=== PATIENT | female | born 1985 | race Hispanic/Latino ===

== ENCOUNTER 2019-10-21 21:23 | Inpatient (IN) ==
[2019-10-21] MEDS ORDERED: NS 1,000 ML IV ONE (21:48)
[2019-10-21 22:07] LABS: ALLEN TEST YES; BE -21.4 mmoll (-3.0-3.0); BLOOD TYPE ARTERIAL; HCO3-(ACT) 8.2 mmoll (20.0-26.0); METHB 1.2 % (0.0-1.5); O2(CT) 18.2 mL/dL (15.0-23.0); O2HB 96.2 % (95.0-99.0); PO2(98.6) 121 mmHg (60-100); SAMPLE BLOOD; SAO2 98.2 % (95.0-100.0); THB 13.3 g/dL (11.5-17.4)
[2019-10-21 22:09] LABS: MODALITY ROOM AIR; PCO2(98.6) 13 mmHg (35-45); pH(98.6) 7.17 (7.35-7.45)
[2019-10-21] MEDS ORDERED: HUMULIN R IV ONE (22:15)
[2019-10-21 22:17] LABS: BASO# 0.01 X1000 (0.0-0.2); BASO% 0.1 % (0.0-0.8); HEMATOCRIT 40.9 % (37.0-47.0); HEMOGLOBIN 12.7 g/dL (12.0-16.0); IMM GRAN# 0.02 X1000 (0.0-0.04); IMM GRAN% 0.2 % (0.0-0.5); LYMPH# 0.61 X1000 (1.2-3.4); LYMPH% 6.3 % (20.5-51.1); MCH 25.1 PG (27-31); MCHC 31.1 g/dL (33-37); MCV 80.8 FL (81-99); MONO# 0.18 X1000 (0.11-0.59); MONO% 1.9 % (1.7-9.3); MPV 10.7 FL (7.4-10.4); NEUT# 8.79 X1000 (1.4-6.5); NEUT% 91.5 % (42.2-75.2); PLT 327 X1000 (130-400); RBC 5.06 XMIL (4.2-5.4); WBC 9.61 X1000 (4.8-10.8)
[2019-10-21 22:24] LABS: INR 1.17; PROTIME 15.1 Seconds (11.0-16.0)
[2019-10-21 22:25] LABS: ACETONE SERUM LARGE (NEGATIVE); PTT 24.9 Seconds (22.3-41.8)
[2019-10-21 22:38] LABS: ALB/GLOB RATIO 1.6; CALCIUM 10.2 mg/dL (8.8-10.2); CREATININE 1.1 mg/dL (0.5-0.9); POTASSIUM 4.6 mmol/L (3.5-5.1); TOTAL BILIRUBIN 0.2 mg/dL (0.20-1.00); TOTAL PROTEIN 8.1 g/dL (6.3-8.3)
[2019-10-21 22:40] LABS: MAGNESIUM 2.1 mg/dL (1.5-2.7); PHOSPHORUS 6.5 mg/dL (2.7-4.5)
--- NOTE | 2019-10-21 22:51 | EKG Report ---
Test Performed on : 10/21/2019 9:48:56 PM Test Reason : nausia and vomiting Blood Pressure : / mmHG Vent. Rate : 106 BPM Atrial Rate : 106 BPM P-R Int : 126 ms QRS Dur : 086 ms QT Int : 348 ms P-R-T Axes : 053 -34 023 degrees QTc Int : 462 ms Sinus tachycardia. Possible Left atrial enlargement Left axis deviation Abnormal ECG No previous ECGs available Unconfirmed Result
--- NOTE | 2019-10-21 23:43 | PROVIDER DOCUMENTATION ---
This chart was entered by Kristin Valle Scribe, acting as scribe for Gibran Louis DO. HPI-Abdominal Pain/GI Problem - General Chief Complaint: N/V/D Stated Complaint: VOMITING, CHEST PAIN Time Seen by Provider: 10/21/19 21:26 Source: patient, shot examiner Allergies/Adverse Reactions: Patient Allergies Allergy/AdvReac Type Severity Reaction Status Date / Time No Known Allergies Allergy Verified 10/21/19 21:48 Home Medications: Home Medication List Medication Instructions Recorded Confirmed Last Taken Type Unobtainable [Home Meds 10/21/19 10/21/19 Unknown History Unobtainable] - History of Present Illness-ABD Nature of Presenting Problems: pt is a 34 yr old female presenting with complaint of nausea, vomiting and diarrhea, onset 0. pt also reports chest pain while vomiting. no f ever/chills, no other complaints Abdominal Pain Onset Location: reports: epigastric Pain Radiation: reports: no radiation Quality of Pain: reports: none Severity in ED: reports: moderate Onset/Duration: reports: this morning (299) Timing: reports: still present Activities at Onset: reports: light activity Exposure to sick contacts?: No Modifying Factors: improves with: vomiting (causes chest pain) Associated Symptoms: reports: chest pain, diarrhea, nausea, vomiting. denies: fever/chills Last BM: this evening Rectal Bleeding: reports: none Rectal Pain: reports: none Emesis Description: reports: clear Bruising or Bleeding Gums?: No Similar Symptoms Previously?: No Recently seen or treated by another doctor?: No Review of Systems - Adult - REVIEW OF SYSTEMS - ADULT Constitutional: denies: chills, fever Eyes: reports: no symptoms reported Ears, Nose, Mouth & Throat: denies: ear pain, sinus problem, throat pain Cardiovascular: reports: chest pain. denies: palpitations, syncope Respiratory: denies: cough, dyspnea on exertion, wheezing Gastrointestinal: reports: abdominal pain, diarrhea, nausea, vomiting Genitourinary: reports: no symptoms reported Musculoskeletal: reports: no symptoms reported Integumentary: reports: no symptoms reported Neurological: denies: dizziness/vertigo, headache/migraines Psychiatric: reports: no symptoms reported Endocrine: reports: no symptoms reported Hematologic/Lymphatic: reports: no symptoms reported Allergic/Immunologic: reports: no symptoms reported All Other Systems: Reviewed and Negative Past History - Adult - PAST MEDICAL HISTORY-ADULT Review of Records: reports: Nursing Assessment Review, Medications Reviewed, Social history reviewed & non-contributory. Major Childhood Illnesses: reports: denies history Cardiovascular: reports: denies history Respiratory: reports: denies history Gastrointestinal: reports: denies history Obstetrical/Gynecological: reports: denies history Genitourinary: reports: denies history Musculoskeletal: reports: denies history Neurological: reports: denies history Endocrine/Immune: reports: denies history Other Conditions: reports: denies history - IMMUNIZATION STATUS Childhood Immunizations: See Nurse Assessment Flu Vaccine: See Nurse Assessment - FAMILY HISTORY Family History: reviewed, not pertinent - SOCIAL HISTORY Smoking: denies Substance Use: alcohol Alcohol Use Frequency: occasionally Living Situation: family Physical Exam-General - PHYSICAL EXAM-ADULT Initial Vital Signs Reviewed: Yes - CONSTITUTIONAL General Appearance: appears well, alert, no apparent distress - EYES Eyes: PERRL/EOMI - HEAD, EARS, NOSE, MOUTH & THROAT HENMT: normocephalic/atraumatic, moist mucous membranes, normal ENT inspection - NECK Neck: non-tender, full range of motion, supple, normal inspection - RESPIRATORY Respiratory: chest non-tender, lungs clear, normal breath sounds - CARDIOVASCULAR Cardiovascular: normal peripheral pulses, regular rate, rhythm - GASTROINTESTINAL (ABDOMEN) Abdominal Exam: normal bowel sounds, non tender, soft - LYMPHATIC Lymphatic: no adenopathy - MUSCULOSKELETAL Back Exam: normal inspection, no CVA tenderness, no vertebral tenderness Extremity: normal range of motion, non-tender, normal gait, normal inspection - SKIN Integumentary: normal color, normal turgor, warm/dry - NEUROLOGIC Neurologic: grossly normal, no motor/sensory deficits - PSYCHIATRIC Psych/Mental Status: normal mood/affect Progress - PLAN OF CARE/RESULTS Progress/Plan/Lab Results: Vital Signs - 8 hr 10/21/19 21:30 Temperature 98.7 F Pulse Rate 110 H Respiratory Rate 26 H Blood Pressure 107/75 O2 Sat by Pulse Oximetry 100 Orders Category Date Time Status Cardiac Monitoring DIRECTED Care 10/21/19 21:48 Active ED: Urine Bedside NOW Care 10/21/19 21:48 Active FSBS/Accucheck Result Q1H Care 10/21/19 21:48 Active Finger Stick Blood Sugar (ED) DIRECTED Care 10/21/19 21:45 Active NEWS Score >or=5:Order NEWS Bundle S.O. NOW Care 10/21/19 21:48 Active Saline Loc NOW Care 10/21/19 21:48 Active Vital Signs Order Q1H Care 10/21/19 21:48 Active FLAT/UPRIGHT ABD/1 VIEW CHEST [RAD] Stat Exams 10/21/19 21:45 Ordered ABG [RESP] Routine Lab 10/21/19 21:46 Ordered ACETONE SERUM [CHEM] Stat Lab 10/21/19 21:48 Uncollected CBC WITH ELECTRONIC DIFF [HEME] Stat Lab 10/21/19 21:45 Uncollected CK PROFILE [SP CHEM] Stat Lab 10/21/19 21:45 Ordered COMPREHENSIVE METABOLIC PANEL [CHEM] Stat Lab 10/21/19 21:45 Ordered LACTATE, PLASMA [CHEM] Stat Lab 10/21/19 21:48 Uncollected MAGNESIUM [CHEM] Stat Lab 10/21/19 21:48 Uncollected PHOSPHORUS [CHEM] Stat Lab 10/21/19 21:48 Uncollected TEST-URINE [PREG] Stat Lab 10/21/19 21:45 Uncollected TROPONIN T HIGH SENSITIVITY Stat Lab 10/21/19 21:48 Uncollected UA NIMS W/REFLEX CULT [URINALYSIS] Stat Lab 10/21/19 21:47 Uncollected URINE DRUG SCREEN Stat Lab 10/21/19 21:48 Uncollected 0.9% Sodium Chloride Inj [Ns] 1,000 ml Med 10/21/19 21:48 Active IV 999 mls/hr EKG [EKG] Routine Ther 10/21/19 21:48 Ordered Result Diagrams: 10/21/19 21:55 10/21/19 21:55 - EKG 1 Time of EKG reading by physician:: 21:48 EKG Read and Signed by:: Gibran Louis EKG Interpretation (*Must complete 3 of following elements*): Abnormal (poss LAE) Rate: 106 Rhythm: sinus tach [place]: left QRS: normal [place] Interval: normal ST Wave: normal - CONSULTS/PCP/HOSPITALIST Notification #1 *Consult/PCP/Hospitalist*: Dr Elizabeth Time Discussed: 23:42 Consult Disposition: Will see in ED Departure - Departure Date of Disposition Decision: 10/21/19 Time of Disposition Decision: 23:42 DIAGNOSIS: DKA (diabetic ketoacidoses) Qualifiers: Diabetes mellitus type: type 1 Diabetes mellitus complication detail: without coma Qualified Code(s): E10.10 - Type 1 diabetes mellitus with ketoacidosis without coma Disposition: ADMITTED INPATIENT 09 Certified Medical Emergency: Emergent Condition: Serious Referrals and Follow-Ups: None,PCP [Primary Care Provider] - - Critical Care Note This patient required my direct & personal management of CC.: Yes Total Time (mins): 45 Critical Care Statement: This patient required my direct personal management to treat or rule out processes, the absence of which, could potentiallly result in sudden, clinically significant life or limb threatening deterioration. Attestation - Physician/ MAMI Attestation Patient care was provided by Advanced Practice Provider:: No The physician spent face to face time with patient:: Yes Advanced Practice Provider documentation review:: Supervising physician onsite and consulted in the evaluation and care of this patient. The physician did have a face to face encounter with the patient. This chart was documented by the indicated scribe, (Kristin Valle, Eloisa) and accurately reflects the services I performed and decisions made by , Gibran Louis DO, as attested by the provider's signature.
[2019-10-21] MEDS ORDERED: POTASSIUM CHLORIDE 20 MEQ/SWI 20 MEQ/100 ML IVPB IV PRN (23:49)
[2019-10-21] MEDS ORDERED: SODIUM CHLORIDE 0.9% INJ SCH (23:49)
[2019-10-21] MEDS ORDERED: TYLENOL PO PRN (23:49)
[2019-10-21] MEDS ORDERED: ZOFRAN IV PRN (23:49)
[2019-10-21] MEDS ORDERED: D5 NS 1,000 ML IV PRN (23:49)
[2019-10-21] MEDS ORDERED: D50W SYRINGE IV PRN (23:49)
[2019-10-21] MEDS ORDERED: POTASSIUM CHLORIDE 20% LIQUID PO PRN (23:49)
[2019-10-21] MEDS ORDERED: POTASSIUM CHLORIDE 40 MEQ/SWI 40 MEQ/100 ML IVPB IV PRN (23:49)
[2019-10-21] MEDS ORDERED: SODIUM PHOSPHATE 30 MMOL in D5W 250 ML IV PRN (23:49)
[2019-10-21] MEDS ORDERED: MAGNESIUM SULFATE 2 GM/S.W.I. 2 GM/50 ML IVPB IV PRN (23:49)
[2019-10-22 00:14] LABS: BILIRUBIN URINE NEGATIVE (NEGATIVE); BLOOD URINE TRACE (NEGATIVE); COLOR YELLOW; GLUCOSE URINE >1000 mg/dL (NEGATIVE); KETONE URINE >150 mg/dL (NEGATIVE); LEUKOCYTES URINE TRACE (NEGATIVE); NITRITE URINE NEGATIVE (NEGATIVE); PH URINE 5.5; PROTEIN URINE 100 mg/dL (NEGATIVE); SP GRAVITY URINE 1.023; TURBIDITY URINE CLEAR (CLEAR); UR EPITHELIAL CELLS <10 /HPF (<10); URINE BACTERIA 1+ /HPF; URINE RBC <10 /HPF (<10); URINE SOURCE CLEAN CATCH; URINE WBC 20-40 /HPF (<10); UROBILINOGEN URINE NORMAL (NORMAL)
[2019-10-22 00:21] LABS: HEMOGLOBIN A1C 13.8 % (4.8-6.0)
[2019-10-22] MEDS: PROTONIX IV SCH ×2 (00:36→23:45)
[2019-10-22] MEDS: NS 1,000 ML IV SCH ×6 (00:37→23:45)
[2019-10-22] MEDS: HUMULIN R 100 UNIT in NS 100 ML IV SCH (00:39)
[2019-10-22 02:02] LABS: UR AMPHETAMINES QUAL NONE DETECTED (NONE DETECT); UR BARBITUATES QUAL NONE DETECTED (NONE DETECT); UR BENZODIAZEPIN QUAL NONE DETECTED (NONE DETECT); UR CANNABINOIDS QUAL NONE DETECTED (NONE DETECT); UR COCAINE QUAL NONE DETECTED (NONE DETECT); UR METHADONE QUAL NONE DETECTED (NONE DETECT); UR OPIATES QUAL NONE DETECTED (NONE DETECT); UR OXYCODONE QUAL NONE DETECTED (NONE DETECT); UR PCP QUAL NONE DETECTED (NONE DETECT)
[2019-10-22 02:29] LABS: ESTIMATED GFR > 60
[2019-10-22 02:33] LABS: AGAP 27; BUN 12 mg/dL (8-22); CALCIUM 8.7 mg/dL (8.8-10.2); CHLORIDE 118 mmol/L (98-107); COSMO 312; CREATININE 0.9 mg/dL (0.5-0.9); GLUCOSE 290 mg/dL (70-104); MAGNESIUM 2.1 mg/dL (1.5-2.7); PHOSPHORUS 2.6 mg/dL (2.7-4.5); POTASSIUM 4.1 mmol/L (3.5-5.1); SODIUM 152 mmol/L (136-145); TCO2 7 mmol/L (25-35)
[2019-10-22 05:42] LABS: ESTIMATED GFR > 60
[2019-10-22 05:52] LABS: AGAP 19; BUN 10 mg/dL (8-22); CALCIUM 9.3 mg/dL (8.8-10.2); CHLORIDE 112 mmol/L (98-107); COSMO 289; CREATININE 0.8 mg/dL (0.5-0.9); GLUCOSE 228 mg/dL (70-104); MAGNESIUM 1.9 mg/dL (1.5-2.7); PHOSPHORUS 1.7 mg/dL (2.7-4.5); SODIUM 142 mmol/L (136-145); TCO2 11 mmol/L (25-35)
[2019-10-22] MEDS: POTASSIUM CHLORIDE 10% LIQUID PO PRN ×3 (06:26→14:59)
--- NOTE | 2019-10-22 06:36 | HISTORY AND PHYSICAL ---
ADDENDUM REPORT: This is an addendum to the complete history and physical note dictated by the nurse practitioner. PRIMARY CARE PHYSICIAN: The patient has no primary care physician. HISTORY OF PRESENT ILLNESS: The patient is a 34-year-old with history of type 1 DM, who recently relocated to [place] within the last one month from [place], [place]. The patient ran out of insulin. She has not established care in [place]. She does not have a prescription to refill her insulin. She presented with complaints of nausea, vomiting, and diarrhea that started today. The patient has not taken any insulin since for the last 1 to 2 weeks. She denies any fever. She denies any chills. She denies any dysuria, frequency or hematuria. On presentation her labs were consistent with DKA. The patient was admitted to the ICU. LABS: Revealed pH 7.17, pCO2 13, bicarb 7, anion gap 37, BUN 13, creatinine 1.1 and blood glucose was 510. Serum acetone was large. UA did not reveal any sign of any urinary tract infection. UDS was negative. The patient did not have any leukocytosis as well. ASSESSMENT: Diabetic ketoacidosis secondary to medication noncompliance. PLAN: Admit the patient to ICU. Start patient on insulin drip. Follow DKA protocol. Regular checks of BMP. We will keep patient on telemetry monitoring. I expect the gap to close, and also the metabolic acidosis to resolve as well. We will change fluid as well according to DKA protocol. We will also replete potassium as well as to avoid any potassium deficits. For now, no indication for any antibiotics as patient has no leukocytosis. Chest x-ray and urinalysis did not show a focus of any infection. The patient will need to be set up at discharge with a primary care physician where she can get her prescriptions written and also so she can get refills of her medications. I agree with the documentation by the nurse practitioner and also the orders as well. COREEN
--- NOTE | 2019-10-22 06:45 | Diag Imaging Result Doc PS360 ---
FLAT/UPRIGHT ABD/1 VIEW CHEST - 10/21/2019 INDICATION: nausea and vomiting TECHNIQUE: COMPARISON: None FINDINGS: The chest is clear. There is a nonobstructive bowel gas pattern. No free air or abnormal calcifications. IMPRESSION: Negative exam. Electronically signed by Jorge Luis Sahu 10/22/2019 6:43 AM
[2019-10-22] MEDS: D5 1/2 NS 1,000 ML IV SCH ×2 (09:29→16:53)
[2019-10-22] MEDS: ROCEPHIN 1 GM in NS 50 ML IV SCH (09:29)
--- NOTE | 2019-10-22 09:29 | HISTORY AND PHYSICAL ---
PRIMARY CARE PHYSICIAN: The patient does not have a primary care provider. CHIEF COMPLAINT: Nausea, vomiting, and diarrhea. HISTORY OF PRESENT ILLNESS: Ms. Lombardi is a 34-year-old, female who states that she just recently moved here from [place] approximately 1 month ago. She states in [place], she did have a primary care provider who did write her prescriptions for her insulin. The patient states that since moving here, she does not have a primary care provider nor is she able to afford her insulin even if she did have a prescription for it. She reports that she was supposed to be taking Levemir 82 units subcutaneously twice a day, NovoLog 50 units with each meal, and metformin 1000 mg b.i.d. She states she has not had any diabetic medications in approximately 1 month. She presents today with reports of epigastric pain for which she stated, when asked the nature of her pain, that it was just "some pain". She also complained of nausea, vomiting, and diarrhea. She states that this started yesterday. She reports multiple episodes of nausea and vomiting, only a few episodes of diarrhea. She denies any hematemesis, coffee-grounds emesis, hematochezia, or melena. She denied any fever or body aches, though has reported a few chills. She also has reported some occasional headache and some dizziness. She denies any chest pain, shortness of breath, or cough. She denied any dysuria but did report urinary frequency. She denied any other pain, numbness, tingling, or swelling in the extremities. She did not have any known wounds or sores that may possibly be infected. Upon evaluation in the ER, she was noted to have a serum glucose of 510 with a serum bicarb of 7 and an anion gap of 37. Sodium was 148, potassium 4.6, chloride 104, BUN 13, creatinine 1.1, with a GFR of 57. Arterial blood gases did reveal a pH of 7.17, with a pCO2 of 13. She did have a large amount of serum acetone noted. Given this, the patient has been placed on a DKA protocol with an insulin drip. She already received 1 L normal saline bolus in the ER. She will be placed in the ICU for further treatment and evaluation. My history and physical was conducted with the patient with the use of the language line, translation services, the windows and doors installer number. Associate Professor Of Mathematics's identification number was [id number]. REVIEW OF SYSTEMS: A 14 point review of systems was conducted with the patient. All were negative except for pertinent positives mentioned above in the HPI. PAST MEDICAL HISTORY: 1. Diabetes mellitus type 2. 2. Hyperlipidemia. PAST SURGICAL HISTORY: 1. section x2. 2. A reported pancreas surgery for which she states that something had to be drained, though she could not clarify what the exact complication was. SOCIAL HISTORY: The patient denies any tobacco or illicit drug use. She does report that she occasionally drinks alcohol but this is only rarely, though did reportedly drink 3 beers yesterday. FAMILY HISTORY: Positive for her mother and sister both having a history of diabetes mellitus. Her father does not have any known medical problems. ALLERGIES: Patient has no known allergies. HOME MEDICATIONS: The patient did give me a verbal report that she is supposed to be taking Levemir 82 units b.i.d. as well as NovoLog 50 units with each meal and metformin 1000 mg b.i.d. She also reports that she takes atorvastatin, though does not know the dose. The patient has been out of her diabetic medications for approximately 1 month. We were not able to confirm these medications or the dosages with an external medication history. This was verbal report only. DIAGNOSTIC DATA/LABORATORY RESULTS: White blood cell count is 9610, hemoglobin 12.7, hematocrit 40.9, platelet count is 327,000. PT 15.1, INR 1.17, PTT is 24.9. Sodium 148, potassium 4.6, chloride 104, serum bicarbonate is 7, anion gap is 37, BUN 13, creatinine 1.1, with a GFR of 57, glucose 510, hemoglobin A1c was 13.8, calcium 10.2, phosphorus 6.5, magnesium 2.1. Liver function tests within normal limits except for alkaline phosphatase was elevated at 133. CK is 34, troponin T high sensitivity is less than 6. Plasma lactate was 3.4. Serum acetone level was large. Arterial blood gases were obtained on room air with a pH of 7.17, pCO2 of 13, PO2 of 121, HC03 of 8.2, and a base excess of -21.4, with O2 saturation of 92. Urinalysis was obtained via clean catch. It was positive for protein greater than 1000, glucose, greater than 150 ketones, trace blood, trace leukocytes, 20 to 40 white blood cells, and 1+ bacteria, though it was negative for nitrites and bilirubin. Urine drug screen was negative. EKG showed sinus tachycardia with possible left atrial enlargement and a left axis deviation at a rate of 106 with a QTc of 462. Abdomen flat and upright with 1 view chest showed that the chest was clear. There was no obstructive bowel gas pattern. There was no free air or abdominal calcifications. This was per radiology. PHYSICAL EXAMINATION: VITAL SIGNS: Temperature 98.7 degrees, heart rate 103, respirations 18, blood pressure is 108/63, with a MAP of 80, and oxygen saturation is 100% on room air. GENERAL: Ms. Lombardi is a very pleasant, 34-year-old, female. She was resting on the ER stretcher. She was in no acute distress. She was awake, alert, and able to answer questions appropriately. HEENT: Head is atraumatic, normocephalic. Pupils are equal, round, reactive to light, were 3 mm bilaterally and brisk. Oral mucosa was dry. Oropharynx was clear. NECK: Supple. Trachea midline. CARDIOVASCULAR: Patient has S1-S2 present. No murmurs, gallops, or rubs appreciated, with a tachycardic rate that is regular. PULMONARY: Patient has symmetrical chest expansion bilaterally. Lung sounds were clear to auscultation in bilateral full magdaleno. ABDOMEN: Soft, nondistended, nontender, though bowel sounds were hypoactive. EXTREMITIES: No cyanosis or edema noted. Pulse, motor, and sensory are intact in all extremities. Radial and pedal pulses are 2+ bilaterally. INTEGUMENTARY: The patient's skin color is pink, warm, and dry. She does have decreased skin turgor noted. NEUROLOGICAL: Patient is alert and oriented to person, place, time, and situation. She is able to move all extremities. There were no focal neurological deficits noted. ASSESSMENT AND PLAN: 1. Diabetic ketoacidosis. For this, the patient has been placed on the diabetic ketoacidosis protocol. She has been placed on an insulin drip. She did receive a 1 L normal saline bolus in the emergency room. We will add on 2 additional 1 L boluses for a total of 3 L normal saline bolus. Then she will have normal saline at 120 mL per hour and we will continue from there with a diabetic ketoacidosis protocol for insulin drip titration and monitoring and replacement. She will be nothing per oral at this time, given that she has had nausea and vomiting. We have placed as needed antiemetics. We will continue to monitor closely. We will continue to follow closely. She has been placed in the intensive care unit for close monitoring. 2. Uncontrolled diabetes mellitus type 2. The patient states that she has been out of her medications for approximately 1 month. She recently moved here from [place] a month ago and does not have a primary care provider here. Did not have any prescriptions available to get filled to get her diabetic medications. She states even if she did have a prescription to get them filled that she was not able to afford them. We will place case management and social work instructor consults that they might be able to assist the patient with obtaining a primary care provider and assistance with obtaining her diabetic prescriptions as well. Also, it would benefit the patient if maybe adjustments could be made to her diabetic prescriptions to something that is more affordable upon discharge. 3. Nausea and vomiting. We have placed as needed antiemetics. 4. Fluid volume depletion. We will continue with intravenous hydration as mentioned above in #1. 5. History of hyperlipidemia. The patient reports that she previously took atorvastatin, though does not know the dose at this time. 6. Deep vein thrombosis prophylaxis will be provided with sequential compression devices. 7. Urinary tract infection. The patient does have a urine culture ordered. We have placed her with antibiotic of Rocephin 1 g intravenous every 24 hours. We will await culture results and continue to follow. 1. The patient has been placed in the intensive care unit for close monitoring. She will have vital signs per intensive care unit protocol. She will be on continuous cardiac telemetry and pulse oximetry. She will be nothing per oral until her nausea and vomiting improve. Then we can trial ice chips and maybe advance her to clear liquids. We will monitor and replace electrolytes per diabetic ketoacidosis protocol. Further orders and recommendations pending hospital course, diagnostic studies, and physician evaluation. Dictated by JAROD Moon for Hai Rajput MD
[2019-10-22 09:38] LABS: ALLEN TEST NO; BE -11.8 mmoll (-3.0-3.0); BLOOD TYPE ARTERIAL; HCO3-(ACT) 15.7 mmoll (20.0-26.0); O2(CT) 20.8 mL/dL (15.0-23.0); O2HB 96.7 % (95.0-99.0); PCO2(98.6) 27 mmHg (35-45); PO2(98.6) 112 mmHg (60-100); SAMPLE BLOOD; SAO2 99.4 % (95.0-100.0); THB 15.2 g/dL (11.5-17.4); pH(98.6) 7.29 (7.35-7.45)
[2019-10-22 09:39] LABS: MODALITY ROOM AIR
[2019-10-22 10:28] LABS: ESTIMATED GFR > 60
[2019-10-22 10:36] LABS: AGAP 13; BUN 10 mg/dL (8-22); CALCIUM 8.4 mg/dL (8.8-10.2); CHLORIDE 117 mmol/L (98-107); COSMO 292; CREATININE 0.8 mg/dL (0.5-0.9); GLUCOSE 238 mg/dL (70-104); MAGNESIUM 1.9 mg/dL (1.5-2.7); PHOSPHORUS 1.4 mg/dL (2.7-4.5); POTASSIUM 3.7 mmol/L (3.5-5.1); SODIUM 143 mmol/L (136-145); TCO2 13 mmol/L (25-35)
--- NOTE | 2019-10-22 11:42 | PROGRESS NOTE ---
DATE: 10/22/2019 SUBJECTIVE: This patient states that she is feeling better. She is still complaining of some complaining of some abdominal discomfort. She is not having nausea or vomiting today. As per the patient, she started having nausea and vomiting with diarrhea on Wednesday. As per the patient, she ran out of her medications a month ago. She is coming from [place]. No family members are sick at home. She had a low-grade temperature today at 100.2. Her blood pressure has been borderline low mostly in the 90s and 110. I will continue with the DKA protocol. She seems to be improving. We will continue with the same management. She is not complaining of dysuria. She is not complaining of cough or shortness of breath. OBJECTIVE: Vital Signs: Temperature 100.2 degrees, pulse 96, respiratory rate 22, blood pressure 183/55, oxygen saturation 100% on room air. HEENT: Head normocephalic. No trauma. PERRLA. Neck: Supple. No JVD. No masses. Central trachea. Chest: Clear to auscultation. No wheezing. No rales. Abdomen: Soft. Some tenderness to palpation at the level of the epigastric area. Extremities: No edema. No clubbing. No cyanosis. Neurological: The patient is awake, alert. She is oriented x3. No focal neurological deficits. LABORATORY DATA: A pH of 7.29, pCO2 27 bicarbonate 15.7, sodium 143, potassium 3.7, chloride 117, bicarbonate 13, BUN 10, creatinine 0.8, glucose 238, calcium 8.4, phosphorus 1.4. ASSESSMENT AND PLAN: 1. Diabetic ketoacidosis. We will continue with the same management. She is on DKA protocol. As per the patient, she stopped taking her medications at least 1 month ago. Her hemoglobin A1c is elevated at 13.8, so it looks like this patient has not been taking her medications as prescribed. 2. Uncontrolled type 1 diabetes, with a hemoglobin A1c of 13.8, as above. 3. Nausea and vomiting. Continue with same management. She is not having nausea at this moment. 4. Dehydration, she seems to be more hydrated, probably euvolemic at this moment. 5. Acute kidney injury, resolved. 6. Electrolyte imbalance especially hypernatremia, resolved. 7. Deep vein thrombosis prophylaxis with sequential compression devices. cc: Ildefonso Eden MD
[2019-10-22 14:40] LABS: AGAP 11; BUN 9 mg/dL (8-22); CALCIUM 8.2 mg/dL (8.8-10.2); CHLORIDE 115 mmol/L (98-107); COSMO 290; CREATININE 0.6 mg/dL (0.5-0.9); ESTIMATED GFR > 60; GLUCOSE 249 mg/dL (70-104); MAGNESIUM 1.9 mg/dL (1.5-2.7); PHOSPHORUS 1.5 mg/dL (2.7-4.5); SODIUM 142 mmol/L (136-145); TCO2 16 mmol/L (25-35)
[2019-10-22 18:15] LABS: AGAP 10; BUN 8 mg/dL (8-22); CALCIUM 8.3 mg/dL (8.8-10.2); CHLORIDE 114 mmol/L (98-107); COSMO 286; CREATININE 0.6 mg/dL (0.5-0.9); ESTIMATED GFR > 60; GLUCOSE 252 mg/dL (70-104); MAGNESIUM 1.9 mg/dL (1.5-2.7); PHOSPHORUS 1.4 mg/dL (2.7-4.5); POTASSIUM 3.7 mmol/L (3.5-5.1); SODIUM 140 mmol/L (136-145); TCO2 16 mmol/L (25-35)
[2019-10-22 21:55] LABS: ALLEN TEST NO; BLOOD TYPE ARTERIAL; HCO3-(ACT) 18.7 mmoll (20.0-26.0); METHB 0.5 % (0.0-1.5); O2(CT) 13.1 mL/dL (15.0-23.0); O2HB 97.6 % (95.0-99.0); PCO2(98.6) 28 mmHg (35-45); PO2(98.6) 103 mmHg (60-100); SAMPLE BLOOD; SAO2 100.9 % (95.0-100.0); THB 9.4 g/dL (11.5-17.4); pH(98.6) 7.37 (7.35-7.45)
[2019-10-22 21:56] LABS: MODALITY ROOM AIR
[2019-10-22 22:25] LABS: AGAP 12; BUN 7 mg/dL (8-22); CALCIUM 8.6 mg/dL (8.8-10.2); CHLORIDE 112 mmol/L (98-107); COSMO 280; CREATININE 0.5 mg/dL (0.5-0.9); ESTIMATED GFR > 60; GLUCOSE 186 mg/dL (70-104); MAGNESIUM 1.8 mg/dL (1.5-2.7); PHOSPHORUS 1.2 mg/dL (2.7-4.5); POTASSIUM 3.1 mmol/L (3.5-5.1); SODIUM 139 mmol/L (136-145); TCO2 15 mmol/L (25-35)
[2019-10-23] MEDS: D5 1/2 NS 1,000 ML IV SCH ×2 (00:21→08:13)
[2019-10-23 03:04] LABS: AGAP 11; BUN 7 mg/dL (8-22); CALCIUM 8.4 mg/dL (8.8-10.2); CHLORIDE 114 mmol/L (98-107); COSMO 278; CREATININE 0.5 mg/dL (0.5-0.9); ESTIMATED GFR > 60; GLUCOSE 112 mg/dL (70-104); MAGNESIUM 1.9 mg/dL (1.5-2.7); POTASSIUM 3.7 mmol/L (3.5-5.1); SODIUM 140 mmol/L (136-145); TCO2 15 mmol/L (25-35)
[2019-10-23] MEDS: POTASSIUM CHLORIDE 10% LIQUID PO PRN ×2 (03:39→08:20)
[2019-10-23] MEDS: HUMULIN R 100 UNIT in NS 100 ML IV SCH (06:18)
[2019-10-23 06:29] LABS: BASO# 0.01 X1000 (0.0-0.2); BASO% 0.2 % (0.0-0.8); EOS# 0.03 X1000 (0.0-0.7); EOS% 0.5 % (0.0-10.0); HEMATOCRIT 32.8 % (37.0-47.0); HEMOGLOBIN 10.1 g/dL (12.0-16.0); LYMPH% 47.9 % (20.5-51.1); MCHC 30.8 g/dL (33-37); MCV 81.2 FL (81-99); MONO# 0.35 X1000 (0.11-0.59); MONO% 5.6 % (1.7-9.3); MPV 9.5 FL (7.4-10.4); NEUT# 2.87 X1000 (1.4-6.5); NEUT% 45.8 % (42.2-75.2); PLT 240 X1000 (130-400); RBC 4.04 XMIL (4.2-5.4); RDW 18.5 % (11.5-14.5); WBC 6.26 X1000 (4.8-10.8)
[2019-10-23 06:57] LABS: ESTIMATED GFR > 60
[2019-10-23 06:59] LABS: BUN 6 mg/dL (8-22); CALCIUM 8.6 mg/dL (8.8-10.2); CREATININE 0.5 mg/dL (0.5-0.9); GLUCOSE 94 mg/dL (70-104); MAGNESIUM 1.9 mg/dL (1.5-2.7); PHOSPHORUS 1.2 mg/dL (2.7-4.5); TCO2 15 mmol/L (25-35)
[2019-10-23 07:27] LABS: SODIUM 140 mmol/L (136-145)
[2019-10-23 07:28] LABS: CHLORIDE 114 mmol/L (98-107); POTASSIUM 3.9 mmol/L (3.5-5.1)
[2019-10-23 07:42] LABS: AGAP 11
[2019-10-23 07:44] LABS: COSMO 277
[2019-10-23] MEDS: ROCEPHIN 1 GM in NS 50 ML IV SCH (08:14)
[2019-10-23] MEDS: NS 1,000 ML IV SCH (08:27)
[2019-10-23] MEDS ORDERED: NS 1,000 ML IV SCH (10:42)
[2019-10-23] MEDS ORDERED: HUMULIN 70/30 SUBQ ONE (10:45)
[2019-10-23] MEDS ORDERED: POTASSIUM PHOSPHATE IV ONE (10:49)
[2019-10-23] MEDS ORDERED: NS IV ONE (10:49)
[2019-10-23 11:05] LABS: AGAP 9; BUN 5 mg/dL (8-22); CALCIUM 8.4 mg/dL (8.8-10.2); CHLORIDE 110 mmol/L (98-107); COSMO 272; CREATININE 0.4 mg/dL (0.5-0.9); ESTIMATED GFR > 60; GLUCOSE 149 mg/dL (70-104); MAGNESIUM 1.7 mg/dL (1.5-2.7); POTASSIUM 3.8 mmol/L (3.5-5.1); SODIUM 136 mmol/L (136-145); TCO2 17 mmol/L (25-35)
[2019-10-23] MEDS: HUMULIN R SUBQ SCH ×3 (11:06→21:02)
[2019-10-23] MEDS ORDERED: INSULIN PEN NEEDLES ONE (11:29)
--- NOTE | 2019-10-23 11:46 | PROGRESS NOTE ---
DATE: 10/23/2019 SUBJECTIVE: The patient seems to be feeling better today. I will put her on a diet. I will stop the insulin drip since her anion gap is closed. No signs of infection. I will stop the antibiotics. I will put her on insulin 70/30. She used to be on insulin Levemir, but as per the patient, she is not able to afford that. Hopefully, she can get this medication instead of Levemir. She will be transferred to the floor. OBJECTIVE: Vital Signs: Temperature 98.2 degrees, pulse 100, blood pressure 102/70, oxygen saturation 99 on room air. HEENT: Head normocephalic. No trauma. PERRLA. Neck: Supple. No JVD. No masses. Central trachea. Chest: Clear to auscultation. No wheezing. No rales. Abdomen: Soft, nontender, nondistended. No hepatosplenomegaly. Extremities: No edema, no clubbing, no cyanosis. Neurological: The patient is awake, alert. She is oriented x3. No focal deficits. LABORATORY DATA: WBC 6.2, hemoglobin 10.1, hematocrit 32.8, platelets 240,000. Sodium 136, potassium 3.8, chloride 110, bicarbonate 17, BUN 5, creatinine 0.4, glucose 149, calcium 8.4. Phosphorus 1.2. ASSESSMENT AND PLAN: 1. Diabetic ketoacidosis, resolved. I will stop the insulin drip, and put her on insulin 70/30. She used to be on insulin Levemir, but she cannot afford that medication. Her hemoglobin A1c is 13.8. As per the patient, she stopped taking the medication more than 1 month ago. 2. Uncontrolled type 1 diabetes with a hemoglobin A1c of 13.8. 3. Nausea and vomiting, resolved. 4. Dehydration, resolved. 5. Acute kidney injury, resolved. 6. Electrolyte imbalance, better. I will replace the phosphorus today. 7. Deep vein thrombosis prophylaxis with sequential compression devices. 8. Disposition. The patient seems to be better. She will be transferred to the floor. I will start this patient on insulin 70/30. She received a total of 57 units in the past 24 hours, so I will go ahead and put her on 25 units of 70/30 in the morning and 15 during the night to see how she does. Hopefully, this patient can be discharged in the next 24 to 48 hours once the blood sugar is stable. cc: Idlefonso Eden MD
[2019-10-23] MEDS ORDERED: HUMULIN 70/30 SUBQ SCH (16:00)
[2019-10-24] MEDS: HUMULIN R SUBQ SCH ×2 (06:47→11:28)
[2019-10-24] MEDS ORDERED: HUMULIN 70/30 SUBQ SCH (07:00)
[2019-10-24 07:34] LABS: AGAP 13; BUN 3 mg/dL (8-22); CALCIUM 8.4 mg/dL (8.8-10.2); CHLORIDE 108 mmol/L (98-107); COSMO 284; CREATININE 0.4 mg/dL (0.5-0.9); ESTIMATED GFR > 60; GLUCOSE 245 mg/dL (70-104); MAGNESIUM 1.8 mg/dL (1.5-2.7); PHOSPHORUS 3.2 mg/dL (2.7-4.5); POTASSIUM 3.8 mmol/L (3.5-5.1); SODIUM 140 mmol/L (136-145); TCO2 19 mmol/L (25-35)
[2019-10-24 11:15] VITALS: BP 118/60
--- NOTE | 2019-10-24 15:08 | DISCHARGE SUMMARY ---
ADMISSION DATE: 10/22/2019 DISCHARGE DATE: 10/24/2019 ADMISSION DIAGNOSES: 1. Diabetic ketoacidosis. 2. Uncontrolled diabetes mellitus type 2. 3. Nausea and vomiting. 4. Fluid volume depletion. 5. History of hyperlipidemia. 6. Urinary tract infection. DISCHARGE DIAGNOSES: 1. Diabetic ketoacidosis, resolved. 2. Uncontrolled diabetes mellitus type 1. 3. Nausea and vomiting, resolved. 4. Dehydration resolved. 5. Acute kidney injury, resolved. 6. Electrolyte imbalance, improved. 7. Acute urinary tract infection with yeast. CONSULTATIONS: None. SURGERIES AND PROCEDURES: None. HOSPITAL COURSE: On 10/21/2019, she presented with complaints of nausea, vomiting, and diarrhea. She was admitted on the . She is a female who states that she recently moved here from [place] around a month ago. At that time, she had a physician that did write a prescriptions for insulin, but has currently not had a new primary care provider and ran out of medication. Apparently, she has been on Levemir and NovoLog and metformin but her hemoglobin A1c was over 13 in that she had not taken her medications in about 1 month. She came in with complaints of epigastric pain, nausea, vomiting, diarrhea. Initial blood glucose level was 510 and sodium bicarb of 7 and anion gap of 37. She was initiated on a DKA protocol and transferred to the ICU for further treatment and evaluation. All symptoms resolved and DKA resolved. She is stable for discharge home. DISCHARGE VITAL SIGNS: Temperature 98.7 degrees, heart rate 66, respiratory rate 18, blood pressure 118/60, O2 saturation 99% on room air. LABORATORY DATA: White blood cells 6000, hemoglobin 10, hematocrit 32, platelet count 214,000. Sodium 140, potassium 3.8, BUN 3, creatinine 0.4, glucose 245, calcium 8.4. IMAGING: Abdominal x-ray, negative exam. EKG sinus tachycardia rate 106, QTc was 462. Micro: Yeast was in the urine. Blood cultures were negative. DISCHARGE MEDICATIONS: 1. Metformin 500 mg p.o. twice daily. 2. Insulin 70/30, 35 units subcutaneously before breakfast. 3. Insulin 70/30, 20 units before supper. 4. Lipitor 20 mg p.o. nightly. DISCHARGE DIET: Diabetic. DISCHARGE ACTIVITY: As tolerated. PHYSICIAN FOLLOWUPS: [facility]. DISCHARGE INSTRUCTIONS: If your condition changes, contact physician and/or return to the emergency department. Changes may include, but are not limited to shortness of breath, increased fatigue, excessive bleeding, unexplained weight loss or gain, unmanageable pain, signs or symptoms of infection. Please notify the physician for 101 or above fever, shortness of breath, chest pain, dizziness, fruity smelling breath, irregular heartbeat. DISCHARGE DISPOSITION: Home. Dictated by JAROD Clements for Fransisco Costa MD cc: JAROD Clements MD
== END 2019-10-24 15:41 | disposition home or self-care (01) | DRG 638 ==
LOC: ED 21:23 → SUATTDRO 10-22 01:43 → ICU 10-22 01:43 → 4N 10-23 14:23
PROVIDERS: ATTEND Internal Medicine